=== PATIENT | female | born 1990 | race African-American/Black ===

== ENCOUNTER 2018-02-19 13:25 | Emergency (ER) | payer SELFPAY ==
[~2018-02-19] VITALS: Ht 172.7 cm; Wt 84.0 kg
[2018-02-19 14:12] VITALS: BP 107/65
== END 2018-02-19 18:59 | disposition left against medical advice (07) ==
LOC: ER 13:25
DX: Z53.21 Procedure and treatment not carried out due to patient leaving prior to being seen by health care provider (principal)